=== PATIENT | female | born 1970 | race Caucasian/White ===

== ENCOUNTER 2017-10-28 13:32 | Emergency (ER) | payer OTHER ==
[~2017-10-28] VITALS: Ht 152.4 cm; Wt 102.5 kg
[~2017-10-28 13:32] MED LIST: CIPROFLOXACIN500 M1 PO
[2017-10-28] MEDS ORDERED: NOVOLOG100 UNIT/1 SUBQ (13:43)
[2017-10-28] MEDS ORDERED: ALDACTONE50 MG PO (13:43)
[2017-10-28] MEDS ORDERED: LASIX 40 MG TAB40 M2 PO (13:43)
[2017-10-28] MEDS ORDERED: LANTUS SOL100 UNIT/1 INJECTION (13:43)
[2017-10-28] MEDS ORDERED: K-TAB ER20 MEQ PO (13:44)
[2017-10-28] MEDS ORDERED: COLACE100 MG PO (13:45)
[2017-10-28] MEDS ORDERED: BACTRIM DS TAB1 EAC1 PO (13:45)
[2017-10-28] MEDS ORDERED: MAGOX 400400 MG PO (13:45)
[2017-10-28] MEDS ORDERED: ZANTAC 150MG T150 MG PO (13:46)
[2017-10-28] MEDS ORDERED: VITAMINC500 PO (13:46)
[2017-10-28] MEDS ORDERED: MULTIPLE VITAM1 EAC2 PO (13:46)
[2017-10-28] MEDS ORDERED: ALBUTEROL2.5 MG/31 INH (13:46)
[2017-10-28] MEDS ORDERED: BIPAP MISCELL (13:47)
[2017-10-28] MEDS ORDERED: ASPIR 8181 MG PO (13:47)
[2017-10-28 16:49] LABS: ABSOLUTE BASOPHILS 0.1 thou/uL (0.0-0.2); ABSOLUTE EOSINOPHILS 0.2 thou/uL (0.0-0.7); ABSOLUTE LYMPHOCYTES 1.5 thou/uL (0.8-5.3); ABSOLUTE MONOCYTES 1.3 thou/uL (0.0-1.2); ABSOLUTE NEUTROPHILS 10.8 thou/uL (1.6-8.1); EOSINOPHILS 1.8 %; HEMATOCRIT 46.8 % (37.0-47.0); HEMOGLOBIN 15.7 gm/dL (12.0-15.0); LYMPHOCYTES 10.5 %; MCH 29.5 pg (26.0-34.0); MCHC 33.6 g/dL (28.0-37.0); MCV 87.7 fL (80.0-100.0); MPV 8.2 fl. (7.2-11.1); NUCLEATED RBCS 0 /100WBC; PLATELET COUNT* 248 thou/uL (150-400); POLYS 77.7 %; RBC 5.33 mil/uL (4.20-5.00); RDW-CV 16.8 % (10.5-14.5); WBC 13.9 thou/uL (4.0-11.0)
[2017-10-28 17:00] LABS: ANION GAP 6 mmol/L (7-16); BUN 25 mg/dL (7-18); CALCIUM 10.1 mg/dL (8.5-10.1); CHLORIDE 95 mmol/L (98-107); CO2 39 mmol/L (21-32); CREATININE 0.7 mg/dL (0.6-1.3); GLUCOSE 96 mg/dL (70-99); POTASSIUM 3.3 mmol/L (3.5-5.1); SODIUM 140 mmol/L (136-145)
[2017-10-28 17:05] LABS: ALBUMIN 3.6 g/dL (3.4-5.0); ALKALINE PHOSPHATASE 49 U/L (46-116); LIPASE 157 U/L (73-393); SGOT 28 U/L (15-37); SGPT 60 U/L (30-65); TOTAL BILIRUBIN 0.4 mg/dL (<0.1-1.0); TROPONIN-I LEVEL <0.06 ng/mL (<0.06)
[2017-10-28] MEDS ORDERED: KEFLEX500 M1 PO (18:59)
[2017-10-28 19:30] LABS: URINE BILIRUBIN NEGATIVE (Negative); URINE BLOOD 3+ (Negative); URINE CLARITY CLEAR; URINE COLOR YELLOW; URINE GLUCOSE-RANDOM NEGATIVE (Negative); URINE KETONES NEGATIVE (Negative); URINE LEUKOCYTES-REFLEX NEGATIVE (Negative); URINE NITRITE-REFLEX NEGATIVE (Negative); URINE PROTEIN 1+ (Negative); URINE UROBILINOGEN 0.2 E.U./dl (0.2-1.0)
[2017-10-28 19:36] VITALS: BP 134/79
[2017-10-28 19:49] LABS: HYALINE CASTS 0-3 Few /LPF (None Seen); SQUAMOUS 4-10 Moderate /LPF (0-3)
[2017-10-28 19:50] LABS: CRYSTALS None Seen /LPF (None Seen); MUCUS None Seen strn/LPF (None Seen); URINE RBC >20 Many /HPF (0-2); URINE WBC-REFLEX 0-5 Rare /HPF (0-5)
[2017-10-28 19:51] LABS: BACTERIA-REFLEX None Seen /HPF (None Seen)
--- NOTE | 2017-10-29 15:20 | EKG ---
[place] [address] ELECTROCARDIOGRAM REPORT Name: ARNOLD RAMOS [facility] [id number] Admission: 10/28/17 Attend Phys: Discharge: 10/28/17 Date of : 74 Report #: [id number] THIS REPORT FOR: //name// [facility] ED Test Date: 2017-10-28 Test Time: 18:05:05 Pat Name: ARNOLD RAMOS Department: Room: Gender: F Brush Stainer: Ramila RAMIREZ : 1970 Requested By: Erica Kaur Order Number: [id number] MD: Eagle Gar Measurements Intervals [place] Rate: 93 P: 20 ND: 150 QRS: 11 QRSD: 86 T: 137 QT: 331 QTc: 412 Interpretive Statements Sinus rhythm Borderline repolarization abnormality Compared to ECG 09/23/2015 14:25:42 Left ventricular hypertrophy no longer present Myocardial infarct finding no longer present Electronically Signed On 10-29-2017 15:20:35 PATENT LEGAL ASSISTANT by Eagle Gar [email or web address] <ELECTRONICALLY SIGNED> By: Eagle Gar MD, [facility] 10/29/17 1520 1805 1805 Eagle Gar MD, [facility] /EPI
== END 2017-10-28 19:36 | disposition home or self-care (01) ==
LOC: M.ERS 13:32
PROVIDERS: Physician Assistant
DX: R53.1 Weakness (principal); G47.30 Sleep apnea, unspecified; E10.9 Type 1 diabetes mellitus without complications; I50.9 Heart failure, unspecified; Z88.1 Allergy status to other antibiotic agents

== ENCOUNTER 2018-01-16 18:09 | Emergency (ER) | payer OTHER ==
[~2018-01-16] VITALS: Ht 152.4 cm; Wt 113.0 kg
[~2018-01-16 18:09] MED LIST changes: +ALBUTEROL2.5 MG/31 INH; +ALDACTONE50 MG PO; +ASPIR 8181 MG PO; +BACTRIM DS TAB1 EAC1 PO; +BIPAP MISCELL; +COLACE100 MG PO; +K-TAB ER20 MEQ PO; +KEFLEX500 M1 PO; +LANTUS SOL100 UNIT/1 INJECTION; +LASIX 40 MG TAB40 M2 PO; +MAGOX 400400 MG PO; +MULTIPLE VITAM1 EAC2 PO; +NOVOLOG100 UNIT/1 SUBQ; +VITAMINC500 PO; +ZANTAC 150MG T150 MG PO
[2018-01-16] MEDS ORDERED: PREDNISONE 20 M20 MG PO (19:17)
[2018-01-16] MEDS ORDERED: BACTRIM DS TAB1 EACH PO (19:17)
[2018-01-16 19:25] VITALS: BP 135/93
== END 2018-01-16 19:26 | disposition home or self-care (01) ==
LOC: M.ERS 18:09
DX: T78.49XA Other allergy, initial encounter (principal); X58.XXXA Exposure to other specified factors, initial encounter; G47.30 Sleep apnea, unspecified; E10.9 Type 1 diabetes mellitus without complications; I50.9 Heart failure, unspecified; Z88.1 Allergy status to other antibiotic agents

== ENCOUNTER 2018-08-22 00:03 | Emergency (ER) | payer OTHER ==
[~2018-08-22] VITALS: Ht 152.4 cm; Wt 108.9 kg
[~2018-08-22 00:03] MED LIST changes: +BACTRIM DS TAB1 EACH PO; +PREDNISONE 20 M20 MG PO
[2018-08-22] MEDS ORDERED: ZAROXOLYN 5MG TA5 MG (00:18)
[2018-08-22] MEDS ORDERED: KEFLEX500 M1 PO (00:41)
[2018-08-22 00:55] VITALS: BP 125/80
== END 2018-08-22 00:55 | disposition home or self-care (01) ==
LOC: M.ERS 00:03
DX: S91.311A Laceration without foreign body, right foot, initial encounter (principal); G47.30 Sleep apnea, unspecified; E10.9 Type 1 diabetes mellitus without complications; I50.9 Heart failure, unspecified; Z88.1 Allergy status to other antibiotic agents; W22.03XA Walked into furniture, initial encounter; Y93.89 Activity, other specified; Y92.89 Other specified places as the place of occurrence of the external cause; Y99.8 Other external cause status

== ENCOUNTER 2019-12-01 16:26 | Emergency (ER) | payer MEDICARE ==
[~2019-12-01] VITALS: Ht 152.4 cm; Wt 126.5 kg
[~2019-12-01 16:26] MED LIST changes: +ZAROXOLYN 5MG TA5 MG
[2019-12-01] MEDS ORDERED: LASIX 40 MG TAB40 MG PO (16:43)
[2019-12-01] MEDS ORDERED: SPIRONOLACTONE100 M3 PO (16:45)
[2019-12-01 17:10] LABS: BE 6.3 mmol/L (-2 to +3); PO2 87.3 mmHg (75.0-100.0); pH 7.327 (7.340-7.450)
[2019-12-01 17:12] LABS: PCO2 69.6 mmHg (35.0-45.0)
[2019-12-01 17:45] LABS: ABSOLUTE BASOPHILS 0.1 thou/uL (0.0-0.2); ABSOLUTE EOSINOPHILS 0.2 thou/uL (0.0-0.7); ABSOLUTE LYMPHOCYTES 0.9 thou/uL (0.8-5.3); ABSOLUTE MONOCYTES 1.3 thou/uL (0.0-1.2); ABSOLUTE NEUTROPHILS 8.8 thou/uL (1.6-8.1); BASOPHILS 0.9 %; EOSINOPHILS 1.7 %; HEMATOCRIT 52.2 % (37.0-47.0); HEMOGLOBIN 17.1 gm/dL (12.0-15.0); LYMPHOCYTES 8.3 %; MCH 29.3 pg (26.0-34.0); MCHC 32.8 g/dL (28.0-37.0); MCV 89.5 fL (80.0-100.0); MONOCYTES 11.2 %; MPV 8.2 fl. (7.2-11.1); NUCLEATED RBCS 0 /100WBC; PLATELET COUNT* 204 thou/uL (150-400); POLYS 77.9 %; RBC 5.83 mil/uL (4.20-5.00); WBC 11.3 thou/uL (4.0-11.0)
[2019-12-01 17:53] LABS: APTT 31.3 Seconds (25.0-31.3); PROTIME 10.6 Seconds (9.20-11.50)
[2019-12-01 18:07] LABS: CALCIUM 9.3 mg/dL (8.5-10.1); CREATININE 0.9 mg/dL (0.6-1.3); POTASSIUM 4.4 mmol/L (3.5-5.1); TOTAL BILIRUBIN 0.2 mg/dL (<0.1-1.0); TOTAL PROTEIN 7.5 g/dL (6.4-8.2)
[2019-12-01] MEDS ORDERED: CEFDINIR300 MG PO (18:21)
[2019-12-01 18:51] VITALS: BP 135/88
== END 2019-12-01 18:52 | disposition home or self-care (01) ==
LOC: M.ERS 16:26
PROVIDERS: Emergency Medicine
DX: J40 Bronchitis, not specified as acute or chronic (principal); E87.2 Acidosis; G47.30 Sleep apnea, unspecified; I50.9 Heart failure, unspecified; Z88.1 Allergy status to other antibiotic agents; Z88.8 Allergy status to other drugs, medicaments and biological substances

== ENCOUNTER 2019-12-04 15:42 | Emergency (ER) | payer MEDICARE ==
[~2019-12-04] VITALS: Ht 152.4 cm; Wt 126.5 kg
[~2019-12-04 15:42] MED LIST changes: +CEFDINIR300 MG PO; +LASIX 40 MG TAB40 MG PO; +SPIRONOLACTONE100 M3 PO
[2019-12-04 17:06] LABS: ABSOLUTE BASOPHILS 0.1 thou/uL (0.0-0.2); ABSOLUTE EOSINOPHILS 0.1 thou/uL (0.0-0.7); ABSOLUTE LYMPHOCYTES 0.8 thou/uL (0.8-5.3); ABSOLUTE MONOCYTES 0.9 thou/uL (0.0-1.2); ABSOLUTE NEUTROPHILS 7.8 thou/uL (1.6-8.1); BASOPHILS 0.7 %; EOSINOPHILS 1.5 %; HEMATOCRIT 50.4 % (37.0-47.0); HEMOGLOBIN 16.4 gm/dL (12.0-15.0); LYMPHOCYTES 8.2 %; MCH 29.5 pg (26.0-34.0); MCHC 32.5 g/dL (28.0-37.0); MCV 90.8 fL (80.0-100.0); MONOCYTES 9.6 %; MPV 7.9 fl. (7.2-11.1); NUCLEATED RBCS 0 /100WBC; PLATELET COUNT* 207 thou/uL (150-400); RBC 5.55 mil/uL (4.20-5.00); RDW-CV 17.3 % (10.5-14.5); WBC 9.8 thou/uL (4.0-11.0)
[2019-12-04 17:15] LABS: CALCIUM 9.2 mg/dL (8.5-10.1); POTASSIUM 4.7 mmol/L (3.5-5.1)
[2019-12-04 17:20] LABS: ALBUMIN 2.8 g/dL (3.4-5.0); TOTAL BILIRUBIN 0.2 mg/dL (<0.1-1.0); TOTAL PROTEIN 7.2 g/dL (6.4-8.2)
[2019-12-04 19:03] VITALS: BP 125/70
== END 2019-12-04 19:04 | disposition home or self-care (01) ==
LOC: M.ERS 15:42
PROVIDERS: Family Medicine
DX: R06.00 Dyspnea, unspecified (principal); G47.30 Sleep apnea, unspecified; E10.9 Type 1 diabetes mellitus without complications; I50.9 Heart failure, unspecified; Z88.1 Allergy status to other antibiotic agents; Z88.8 Allergy status to other drugs, medicaments and biological substances